=== PATIENT | female | born 1975 | race Two or more races ===

== ENCOUNTER 2020-05-08 11:27 | Emergency (ER) | payer OTHER ==
[~2020-05-08] VITALS: Ht 157.5 cm; Wt 74.8 kg
[2020-05-08 11:44] VITALS: BP 118/75
[2020-05-08 12:40] LABS: Eosinophils # (auto) 0.1 10 ^3/uL (0-0.8); Lymphocytes # (auto) 1.7 10 ^3/uL (0.4-5.4); Monocytes # (auto) 0.4 10 ^3/uL (0-1.3); Neutrophils % (auto) 57.5 % (37.0-80.0); Nucleated Red Blood Cells % 0.1 %; Platelet Count (auto) 463 10^3/uL (140-450); White Blood Cell 5.3 10^3/uL (4.4-10.8)
[2020-05-08 12:42] LABS: Basophils # (auto) 0.1 10 ^3/uL (0-0.2); Basophils % (auto) 1.1 % (0.0-2.0); Eosinophils % (auto) 1.5 % (0.0-7.0); Hematocrit 36.5 % (36.0-46.0); Hemoglobin 12.6 g/dL (12.2-16.2); Lymphocytes % (auto) 31.7 % (10.0-50.0); Mean Corpuscular Hemoglobin 29.5 pg (28.0-32.0); Mean Corpuscular Hgb Conc. 34.4 g/dL (32.0-36.0); Mean Corpuscular Volume 85.6 fL (80.0-100.0); Monocytes % (auto) 8.2 % (0.0-12.0); Red Blood Cells 4.27 10^6/uL (4.0-5.20); Red Cell Distribution Width 14.7 % (11.8-14.3)
[2020-05-08 12:45] LABS: Anion Gap 4 (5-15); BUN/Creatinine Ratio 19.4; Blood Urea Nitrogen 12 mg/dL (7-18); Carbon Dioxide 28 mmol/L (21-32); Chloride 108 mmol/L (98-107); GFR African American 133 mL/min; GFR Non-African American 110 mL/min; Glucose 113 mg/dL (74-106); Sodium 140 mmol/L (136-145)
[2020-05-08] MEDS ORDERED: SODIUM CHLORIDE 0.9% 500 ML IV ONE (12:45)
[2020-05-08] MEDS ORDERED: cefTRIAXone 1GM/50ML D5W 50 ML IV ONE (12:45)
== END 2020-05-08 14:38 | disposition home or self-care (01) ==
LOC: ER 11:27
DX: R07.89 Other chest pain (principal); E03.9 Hypothyroidism, unspecified; J03.80 Acute tonsillitis due to other specified organisms
CPT/HCPCS: 36415; 71045; 80048; 84443; 84484; 85025; 93005; 96365; 99285; J0696

== ENCOUNTER 2020-11-14 11:27 | Emergency (ER) | payer OTHER ==
[~2020-11-14] VITALS: Ht 157.5 cm; Wt 74.8 kg
[2020-11-14 12:10] VITALS: BP 102/43
[2020-11-14 12:52] LABS: Urine Bacteria NONE SEEN /hpf (None Seen); Urine Blood Negative /uL (Negative); Urine WBC 1 /hpf (0 - 5)
[2020-11-14] MEDS ORDERED: ONDANSETRON ODT 4 MG TAB PO ONE (13:00)
[2020-11-14] MEDS ORDERED: DICYCLOMINE HCL (10MG/ML) 2 ML AMPULE IM ONE (13:00)
== END 2020-11-14 13:48 | disposition home or self-care (01) ==
LOC: ER 11:27
DX: K52.9 Noninfective gastroenteritis and colitis, unspecified (principal); R11.2 Nausea with vomiting, unspecified
CPT/HCPCS: 81001; 96372; 99283; J0500; Q0162

== ENCOUNTER 2021-07-10 03:11 | Emergency (ER) | payer OTHER ==
[~2021-07-10] VITALS: Ht 157.5 cm; Wt 75.3 kg
[2021-07-10 04:39] LABS: Urine Bacteria MANY /hpf (None Seen); Urine Blood Negative /uL (Negative); Urine Mucus FEW (None Seen); Urine Specific Gravity 1.019 (1.001-1.035); Urine WBC 54 /hpf (0 - 5)
[2021-07-10 05:13] VITALS: BP 117/40
[2021-07-10] MEDS ORDERED: PERCOT PO ×2 (06:40→06:57)
[2021-07-10] MEDS ORDERED: ONDA-144 PO ×2 (06:40→06:57)
== END 2021-07-10 07:09 | disposition home or self-care (01) ==
LOC: ER 03:11
DX: K29.70 Gastritis, unspecified, without bleeding (principal); K85.90 Acute pancreatitis without necrosis or infection, unspecified
CPT/HCPCS: 74176; 81001